=== PATIENT | female | born 1995 | race Caucasian/White ===

== ENCOUNTER 2024-11-13 16:29 | Emergency (ER) | payer MEDICARE, SELFPAY ==
[2024-11-13] VITALS (9 sets, daily range): BP systolic 128–180; BP diastolic 60–120; BMI 44.1
--- NOTE | 2024-11-13 17:58 | ED.GENMED ---
History of Present Illness
General
Chief Complaint: Breathing Problem
Source: patient
Exam Limitations: none
Time Seen by Provider: 11/13/24 17:55
Nursing documentation reviewed up to this point in time: agreed with
History of Present Illness
History of Present Illness:
29 y/o F with h/o PCOS
h/o anxiety and panic attacks years ago
here with pleuritic cp and SOB that started around 3pm when pt was having stressful event. sounds as if pt was arguing with about something and she became very axnious, and sob; she went out side to try to catch her breath and felt like it
didn't help so she went to
pt complained of cp with breathing and was sent here for R/O of PE
she is on OCPs
she last had period 1 week ago
no h/o dvt/pe
she feels better although still anxious; she is not having sob but is having pleuritic cp
no leg swelling, recent travel, surgery, syncope, vomiting
she does take fentermine but didn't take it today
Past History
Past History
ED Past Medical History: None; Negative Asthma, HTN, Hypercholesterolemia or NIDDM
ED Past Surgical History: None
Social History
Tobacco: Non-smoker
Alcohol: None
Personal:
Living: with family
Review of Systems
Review of Systems
Allergies reviewed?: Yes
All Other Systems: Not applicable
Phy Exam
Physical Exam
Physical Exam:
GENERAL: Alert , anxiuos, elevated BMI
EYE: pupils equal and reactive
NECK: Supple
ENT: o/p clr, mmm.
CARDIAC: Regular rate and rhythm no edema
LUNGS: Clear breath sounds bilaterally, no acute respiratory distress, no wheezes/rales/rhonchi
ABDOMEN: Soft, without focal tenderness, no r/g, no cvat, normal bowel sounds
NEUROLOGICAL: Alert and oriented, no focal neuro deficits
SKIN: Warm and dry, skin intact.
MUSCULOSKELETAL: No edema, well perfused. neg chelle's sign
PSYCH: Normal and appropriate interaction.
Course
Orders/Labs/Results
Orders:
Orders
11/13/24 16:34
ECG [Electrocardiogram (*1)] Urgent
Reason for Study: Shortness of Breath
Other Reason for Exam: pain with breathing
EKG- Treatment ONCE
11/13/24 18:18
Lorazepam [Ativan] 1 mg PO NOW STA
11/13/24 18:34
Complete Blood Count/With Diff Urgent
Comprehensive Metabolic Panel Urgent
D-Dimer Urgent
Troponin I Urgent
Abnormal Lab Results
11/13/24
18:34
ALT 107 H U/L
(0-35)
11/13/24 18:34
11/13/24 18:34
Vital Signs
Blood pressure: 128/83
Initial and Last Documented VS:
Initial Vital Signs
Temp Pulse Resp BP Pulse Ox
37.1 C 93 16 179/113 100
11/13/24 16:32 11/13/24 16:32 11/13/24 16:32 11/13/24 16:32 11/13/24 16:32
Last Documented Vital Signs
Temp Pulse Resp BP Pulse Ox
37.1 C 88 27 128/83 99
11/13/24 16:32 11/13/24 19:30 11/13/24 19:30 11/13/24 19:33 11/13/24 19:24
MDM/Problems Addressed
Differential Diagnosis Includes:
anxiety ,PE, nstemi, hypertensive urgency
MDM/Problems Addressed:
29 y/o F with PCOS, on OCPs
here from UC to r/o PE
had onset of pleuritic CP and sob today while she was upset discussing something with her
she now feels better but stil lhas somep ain with breathing
no h/o dvt/pe
no smoker
no RF for ACS
ekg is normal
vitals were very abnormal, elevated BP but i noticed her cuff was too tight and replaced it to be normal bp 128/80
pt innitially declined testing, asking for medication for anxiety as she used to have panic attacks and this feels similar
agreed to initial D Dimer, trop but then declined 2nd trop, aware i cannot properly r/o ACS beased on the timeline of onset of symtposm
but she does have heart score 0
d/c home
*Critical Care Note
Total Time (30-74mins, 75-104mins- exclusive of procedures): Not Applicable
ED Attending Note
-
Portions of this chart may have been created with voice recognition software.� Occasional wrong word or��sound alike� substitutions may have occurred due to the inherent limitations of voice recognition software.
Discharge Plan
Departure
Patient Disposition: Home (Routine Discharge)
Date of Disposition: 11/13/24
Time of Disposition: 19:31
Patient with high blood pressure during this ER visit?: No
Condition: Fair
Covid-19: Not Applicable
Discharge Problem:
Anxiety attack
Instructions: Anxiety in adults - ED discharge instructions
Prescriptions:
No Action
metformin 1,000 mg Tablet
1,000 mg PO DAILY
phentermine 37.5 mg Tablet
37.5 mg PO DAILY
Referrals:
Carmelita Raygoza DO [Family Provider] - Follow up in 5-7 days
Activity Restrictions/Additional Instructions:
FOLLOW UP WITH YOUR FMAILY DOCOTR REGARDING YOUR ANXIETY - YOU MAY NEED TO BE ON MEDICATION
YOUR LIVER MARKER WAS MILDLY HIGH (ALT)
MAKE SURE TO HAVE THIS CHECKED AGAIN
RETURN FOR: CHEST PAIN, SHORTNESS OF BREATH, PASSING OUT OR ANY CONCERNS
Interventions
Interventions:
*Risk Screen - Suicide Last Done: 11/13/24 17:42
*General Assessment Last Done: 11/13/24 17:42
*Neglect/Abuse Screening Last Done: 11/13/24 17:42
*ED- Fall Risk Assessment Last Done: 11/13/24 17:42
*ED COVID-19 Vaccine History Last Done: 11/13/24 20:05
*Nursing Disposition Last Done: 11/13/24 20:05
ED- Cardiac Assessment Last Done: 11/13/24 19:59
ED- Pulmonary Assessment Last Done: 11/13/24 19:59
Discharge Date and Time
Discharge Date/Time: 11/13/24 20:05
Print Language: KOREAN
[2024-11-13] MEDS: ATIVAN 1 MG PO (18:34)
[2024-11-13 18:47] LABS: % Basophils 0.3 % (0-2); % Eosinophils 1.8 % (0-6); % Immature Granulocytes 0.3 % (0-0.5); % Lymphocytes 27.2 % (20.5-51.1); % Monocytes 6.5 % (1.7-9.3); % Neutrophils 63.9 % (42.2-75.2); Absolute Eosinophils 0.1 10^3/uL (0-0.7); Absolute Lymphocytes 2.1 10^3/uL (1.2-3.4); Absolute Monocytes 0.5 10^3/uL (0.1-0.6); Hematocrit 42.7 % (37.0-47.0); Hemoglobin 14.6 g/dL (12.0-16.0); Mean Corp Hgb Conc. 34.2 g/dL (33.0-37.0); Mean Corpuscular Hgb 29.3 pg (27.0-31.0); Mean Corpuscular Volume 85.7 fL (81.0-99.0); Mean Platelet Volume 9.7 fL (7.4-10.4); Nucleated Red Blood Cells % 0 %; Platelet Count 254 10^3/uL (130-400); Red Blood Cell Count 4.98 10^6/uL (4.20-5.40); Red Cell Dist. Width 12.4 % (11.5-14.5); White Blood Cell Count 7.7 10^3/uL (4.8-10.8)
[2024-11-13 19:06] LABS: ALT (SGPT) 107 U/L (0-35); AST (SGOT) 25 U/L (14-36); Albumin 4.6 g/dl (3.5-5.0); Alkaline Phosphatase 76 U/L (38-126); Blood Urea Nitrogen 15 mg/dl (7-17); Calcium 9.7 mg/dl (8.4-10.2); Carbon Dioxide 24 mmol/L (22-30); Chloride 105 mmol/L (98-107); Estimated Creatinine Clearance > 125 ml/min; Glucose 82 mg/dl (70-99); Potassium 4.6 mmol/L (3.5-5.1); Sodium 140 mmol/L (135-145); Total Bilirubin 0.6 mg/dl (0.2-1.3); Total Protein 7.1 g/dl (6.3-8.2); eGFR > 60.00
[2024-11-13 19:10] LABS: Troponin I < 0.012 ng/ml
[2024-11-13 19:15] LABS: D-Dimer < 0.27 ug/mlFEU (0.00-0.50)
== END 2024-11-13 20:05 | disposition home or self-care (01) ==
LOC: EMR 16:29
PROVIDERS: Physician Assistant; EMERGENCY PHYSICIAN Emergency Medicine; FAMILY PHYSICIAN Family Medicine
DX: F41.0 Panic disorder [episodic paroxysmal anxiety] (principal); E28.2 Polycystic ovarian syndrome
CPT/HCPCS: 99284; 80053; 84484; 85025; 85379; 93005